=== PATIENT | male | born 1990 | race Caucasian/White ===

== ENCOUNTER 2016-10-15 00:37 | Emergency (ER) | payer OTHER ==
[~2016-10-15] VITALS: Ht 167.6 cm; Wt 65.5 kg
[~2016-10-15 00:37] MED LIST: Augmentin PO; MOTRIN800 MG PO; NARCAN4 MG NS; Percocet 5/325,Endoc; ~No Medications
[2016-10-15 00:54] VITALS: BP 112/86
[2016-10-15] MEDS ORDERED: NAPROSYN500 MG PO (02:20)
[2016-10-15] MEDS ORDERED: PERCOCET 5/31 TABLET PO (02:20)
== END 2016-10-15 02:34 | disposition home or self-care (01) ==
LOC: EME 00:37 → EXP 00:37
DX: S20.212A Contusion of left front wall of thorax, initial encounter (principal); W20.8XXA Other cause of strike by thrown, projected or falling object, initial encounter; Y93.89 Activity, other specified; F17.200 Nicotine dependence, unspecified, uncomplicated
CPT/HCPCS: 71101; 99281; 99284

== ENCOUNTER 2017-02-21 14:14 | Emergency (ER) | payer OTHER ==
[~2017-02-21] VITALS: Ht 167.6 cm; Wt 78.5 kg
[~2017-02-21 14:14] MED LIST changes: +NAPROSYN500 MG PO; +PERCOCET 5/31 TABLET PO
[2017-02-21 14:22] VITALS: BP 150/107
[2017-02-21] MEDS ORDERED: PEN-VEE K,VEET500 MG PO (17:01)
[2017-02-21] MEDS ORDERED: INDOCIN25 MG PO (17:01)
== END 2017-02-21 18:08 | disposition home or self-care (01) ==
LOC: EME 14:14
DX: K08.89 Other specified disorders of teeth and supporting structures (principal); R51 Headache; F17.200 Nicotine dependence, unspecified, uncomplicated
CPT/HCPCS: 99281; 99283

== ENCOUNTER 2017-11-06 19:17 | Emergency (ER) | payer OTHER ==
[~2017-11-06] VITALS: Ht 167.6 cm; Wt 80.7 kg
[~2017-11-06 19:17] MED LIST changes: +INDOCIN25 MG PO; +PEN-VEE K,VEET500 MG PO
[2017-11-06 20:18] LABS: HEMATOCRIT 43.6 % (38.0-50.0); HEMOGLOBIN 15.4 G/DL (12.5-16.6); MCH 30.5 PG (29.0-34.0); MCHC 35.3 G/DL (30.0-36.0); MCV 86.3 FL (86-99); PLATELET COUNT 253 K/uL (156-360); RBC DIS.WIDTH-CV 11.9 % (11.8-14.6); RBC DIS.WIDTH-SD 37.9 % (39-53); RED BLOOD COUNT 5.05 M/uL (4.00-5.50); WHITE BLOOD COUNT 8.6 K/uL (4.1-10.2)
[2017-11-06 20:31] LABS: CHLORIDE 101 mEq/L (99-109); POTASSIUM 3.2 mEq/L (3.7-5.4); SODIUM 137 mEq/L (136-147)
[2017-11-06 20:33] LABS: GLUCOSE 123 mg/dL (70-99)
[2017-11-06 20:36] LABS: TROP-I INTERPRETATION NEGATIVE; TROPONIN-I < 0.01 ng/mL (0.0-0.30)
[2017-11-06 20:37] LABS: CREATININE 0.9 mg/dL (0.6-1.3); GFR ESTIMATE (CALCULATED) > 59 mL/min/ (58.99-99999)
[2017-11-06 20:38] LABS: UREA NITROGEN (BUN) 10 mg/dL (9-23)
[2017-11-06] MEDS ORDERED: NARCAN4 MG NS (20:40)
[2017-11-06 20:51] VITALS: BP 101/65
== END 2017-11-06 20:52 | disposition home or self-care (01) ==
LOC: EME 19:17
DX: F11.10 Opioid abuse, uncomplicated (principal); F17.200 Nicotine dependence, unspecified, uncomplicated
CPT/HCPCS: 71046; 80048; 84484; 85027; 99281; 99284

== ENCOUNTER 2018-01-14 20:09 | Emergency (ER) | payer OTHER ==
[~2018-01-14] VITALS: Ht 167.6 cm; Wt 76.0 kg
[2018-01-14 21:12] LABS: HEMATOCRIT 43.1 % (38.0-50.0); HEMOGLOBIN 15.1 G/DL (12.5-16.6); MCH 29.7 PG (29.0-34.0); MCV 84.7 FL (86-99); PLATELET COUNT 334 K/uL (156-360); RBC DIS.WIDTH-CV 11.8 % (11.8-14.6); RBC DIS.WIDTH-SD 35.8 % (39-53); RED BLOOD COUNT 5.09 M/uL (4.00-5.50); WHITE BLOOD COUNT 12.5 K/uL (4.1-10.2)
[2018-01-14 21:20] LABS: CHLORIDE 104 mEq/L (99-109); POTASSIUM 3.9 mEq/L (3.7-5.4); SODIUM 141 mEq/L (136-147)
[2018-01-14 21:22] LABS: GLUCOSE 103 mg/dL (70-99)
[2018-01-14 21:25] LABS: CREATININE 0.9 mg/dL (0.6-1.3); GFR ESTIMATE (CALCULATED) > 59 mL/min/ (58.99-99999)
[2018-01-14 21:26] LABS: UREA NITROGEN (BUN) 9 mg/dL (9-23)
[2018-01-14 22:15] VITALS: BP 131/95
== END 2018-01-14 22:19 | disposition home or self-care (01) ==
LOC: EME → EDBD 20:09 → EME 22:19
PROVIDERS: Nurse Practitioner Family
DX: T40.1X1A Poisoning by heroin, accidental (unintentional), initial encounter (principal); F17.200 Nicotine dependence, unspecified, uncomplicated
CPT/HCPCS: 80048; 85027; 99281; 99284

== ENCOUNTER 2018-02-02 21:08 | Inpatient (IN) | payer OTHER ==
[~2018-02-02] VITALS: Ht 167.6 cm; Wt 84.0 kg
[2018-02-02 21:55] LABS: HEMOGLOBIN 15.7 G/DL (12.5-16.6); MCH 29.5 PG (29.0-34.0); MCHC 34.1 G/DL (30.0-36.0); MCV 86.3 FL (86-99); PLATELET COUNT 344 K/uL (156-360); RBC DIS.WIDTH-SD 38.3 % (39-53); RED BLOOD COUNT 5.33 M/uL (4.00-5.50); WHITE BLOOD COUNT 15.6 K/uL (4.1-10.2)
[2018-02-02 22:03] LABS: CHLORIDE 100 mEq/L (99-109); POTASSIUM 3.9 mEq/L (3.7-5.4); SODIUM 138 mEq/L (136-147)
[2018-02-02 22:04] LABS: GLUCOSE 127 mg/dL (70-99)
[2018-02-02 22:08] LABS: CREATININE 0.9 mg/dL (0.6-1.3); GFR ESTIMATE (CALCULATED) > 59 mL/min/ (58.99-99999)
[2018-02-02 22:09] LABS: UREA NITROGEN (BUN) 5 mg/dL (9-23)
[2018-02-02 23:39] LABS: BASOPHIL (%) 0.3 % (0-1); BASOPHIL COUNT 0.1 K/uL (0-0.1); EOSINOPHIL COUNT 0.2 K/uL (0-0.3); IMMATURE GRANULOCYTE (%) 0.4 % (0.0-0.7); LYMPHOCYTE (%) 9.3 % (15-42); LYMPHOCYTE COUNT 1.5 K/uL (1.0-2.8); MONOCYTE (%) 6.4 % (3-12); NEUTROPHIL (%) 82.6 % (45-76); NEUTROPHIL COUNT 13.1 K/uL (1.8-6.4)
[2018-02-03 06:01] VITALS: BP 128/78
[2018-02-03 06:24] LABS: BENZODIAZEPINES, URINE SCREEN Negative (200 ng/mL)
[2018-02-03 07:29] VITALS: BP 90/52
[2018-02-03 11:42] VITALS: BP 122/66
[2018-02-03 15:42] VITALS: BP 109/55
[2018-02-04 00:32] VITALS: BP 113/64
[2018-02-04 06:20] LABS: BASOPHIL (%) 0.3 % (0-1); BASOPHIL COUNT 0.1 K/uL (0-0.1); EOSINOPHIL (%) 0.3 % (0-5); EOSINOPHIL COUNT 0.1 K/uL (0-0.3); HEMATOCRIT 41.6 % (38.0-50.0); HEMOGLOBIN 13.8 G/DL (12.5-16.6); IMMATURE GRANULOCYTE (%) 0.6 % (0.0-0.7); LYMPHOCYTE COUNT 2.3 K/uL (1.0-2.8); MCH 28.8 PG (29.0-34.0); MCHC 33.2 G/DL (30.0-36.0); MCV 86.8 FL (86-99); MONOCYTE (%) 7.8 % (3-12); MONOCYTE COUNT 1.4 K/uL (0-0.8); NEUTROPHIL COUNT 13.7 K/uL (1.8-6.4); PLATELET COUNT 309 K/uL (156-360); RBC DIS.WIDTH-SD 38.7 % (39-53); RED BLOOD COUNT 4.79 M/uL (4.00-5.50); WHITE BLOOD COUNT 17.6 K/uL (4.1-10.2)
[2018-02-04 06:43] LABS: CHLORIDE 106 MEQ/L (99-109); CREATININE 0.6 MG/DL (0.6-1.3); GFR ESTIMATE (CALCULATED) > 59 mL/min/ (58.99-99999); GLUCOSE 116 mg/dL (70-99); POTASSIUM 4.2 MEQ/L (3.7-5.4); SODIUM 143 MEQ/L (136-147); UREA NITROGEN (BUN) 10 mg/dL (9-23)
[2018-02-04 07:21] LABS: VANCOMYCIN, TROUGH 4.9 MCG/ML (10-20)
[2018-02-04 07:36] VITALS: BP 123/71
[2018-02-04 11:10] LABS: HEPATITIS B SURFACE ANTIGEN Nonreactive
[2018-02-04 11:11] LABS: HEPATITIS C ANTIBODY Nonreactive; HIV-1/2 AB/AG COMBO Nonreactive
[2018-02-04 11:32] VITALS: BP 123/65
[2018-02-04 15:49] VITALS: BP 119/86
[2018-02-04 20:00] VITALS: BP 124/68
[2018-02-05 00:27] VITALS: BP 124/60
[2018-02-05 05:02] VITALS: BP 120/73
[2018-02-05 07:22] VITALS: BP 105/64
[2018-02-05] MEDS ORDERED: AUGMENTIN875 MG PO (11:25)
== END 2018-02-05 13:15 | disposition home or self-care (01) | DRG 872 ==
LOC: EME 21:08 → EDOF 02-03 05:13 → 4SOUTH 02-03 05:51
PROVIDERS: Hospitalist; Internal Medicine Infectious Disease
DX: A41.9 Sepsis, unspecified organism (principal); L03.211 Cellulitis of face; K04.7 Periapical abscess without sinus; K02.9 Dental caries, unspecified; F41.9 Anxiety disorder, unspecified; F32.9 Major depressive disorder, single episode, unspecified; F11.20 Opioid dependence, uncomplicated; F17.200 Nicotine dependence, unspecified, uncomplicated
CPT/HCPCS: 70450; 70487; 80048; 80048 91; 80202; 80306 90; 83605; 85025; 85027; 86803; 87040; 87340; 87389; 99281; 99285; J0295; J0690; J0696; J1100; J1650; J1885; J3010; J3370; J7050